=== PATIENT | female | born 1980 | race Caucasian/White ===

== ENCOUNTER 2016-11-22 11:30 | Emergency (ER) | payer OTHER ==
[~2016-11-22 11:30] MED LIST: METFORMIN HCL500 MG PO; PERCOCET1 TA1 PO; PRENATA1 PO; STOOL SOFTENER240 MG; TYLENOL325 MG PO
--- NOTE | 2016-11-22 12:26 | ED CLINICAL REPORT ---
Clinical Report - Physicians/Mid Levels [facility] [address] [place] [address] 11/22/2016 11:30 Patient: AKLPESH BLANC Time Seen: 11:51. Arrived- By private vehicle. Historian- patient. HISTORY OF PRESENT ILLNESS Chief Complaint: DENTAL PAIN. This started several days ago; The patient had a L lower molar extracted several days ago. The extraction site is quite painful. and is still present. It was abrupt in onset. Pain described as moderate. No sore throat, mouth sores or swollen jaw or face. She has had jaw pain. Similar symptoms previously: None. Recent medical care: The patient was seen recently by a health care provider. ( Dental extraction . This is POD2). REVIEW OF SYSTEMS No fever, cough, difficulty breathing or chest pain. PAST HISTORY PROBLEMS: Otitis Externa. Dental Caries. Dental Pain. ADDITIONAL SURGERIES: . ADDITIONAL NOTES The nursing notes have been reviewed. PHYSICAL EXAM Vital Signs: 11/22/2016 12:25 BP: 149/80. HR: 98. RR: 16. O2 saturation: 98%. Temp: 98.6 F. Pain level now: 6/10. 11/22/2016 11:37 BP: 157/78. HR: 92. RR: 18. O2 saturation: 98%. Temp: 98.9 F. Pain level now: 7/10. Appearance: Alert. No acute distress. ENT: No pharyngeal erythema, peritonsillar mass, muffled or hoarse voice or dental decay. The mucous membranes are not dry. (L lower molar extraction site appears to be healing well.). Neck: Normal inspection. Trachea midline. PROGRESS AND PROCEDURES PROCEDURES (An eugenol impregnated sponge was placed in the extraction socket.). Course of Care: Ms Blanc declined the offered dental block. Disposition: Discharged. Condition: stable. CLINICAL IMPRESSION Dental pain (SECONDARY TO DRY SOCKET). INSTRUCTIONS (I AM HAPPY TO GIVE A DENTAL BLOCK IF DESIRED YOU NEED TO SEE THE DENTIST I PUT A EUENOL SOAKED DRESSING IN THE DRY SOCKET). Prescription Medications: Amoxicillin 500 mg capsules: take 1 orally every 8 hours for 7 days. No refills. Ibuprofen 800 mg tablets: take 1 tablet orally every 8 hours as needed for pain. Dispense thirty (30). No refills. Follow-up: Follow up with a dentist Thursday. Call for the next available appointment. Understanding of the discharge instructions verbalized by patient. (Electronically signed by Cachorro Ceja MD 11/24/2016 12:47)
--- NOTE | 2016-11-22 12:26 | ED NURSING NOTES ---
Clinical Report - Nurses [facility] [address] [place] [address] 11/22/2016 11:30 Patient: KALPESH BLANC TRIAGE Triage time 11:35 Nov 22 2016. Acuity: LEVEL 3. Chief Complaint: LEFT LOWER TOOTHACHE and JAW PAIN. Alert. --11:47 Johnny Hdez R.N. 11:37 11/22/16. BP: 157/78. HR: 92. RR: 18. O2 saturation: 98% on room air. Temp: 98.9 F (oral). Pain level now: 03/30. Additional comments: LL jaw dental pain. --11:47 Johnny Hdez R.N. SEPSIS SCREEN: Sepsis Screen. Negative (no infection suspected/documented). TONYA COMA SCORE: [place] Coma Scale: 15- eyes open spontaneously (4); best verbal response- oriented x 4 (5); best motor response- obeys commands (6). --11:47 Johnny Hdez R.N. Weight: 120.2 kg stated. Height/Length: 68 inches Per Patient. BMI: 40.3. --11:43 Johnny Hdez R.N. Medications Seasonal Allergy Rx (?). --11:42 Johnny Hdez R.N. Ibuprofen Oral. --11:42 Johnny Hdez R.N. Allergies Codeine. Definite Moderate(nausea) --11:42 Johnny Hdez R.N. History Arrived by private vehicle. Historian: patient. Primary physician ([facility]). ( (L) Lower Jaw dental pain. Pt states that she had a tooth extracted on 11/17/16 and the pain has worsened since.). Onset. (about 2 days ago). She has had a toothache. 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 PAST MEDICAL HX: Strep throat. Dental caries. Immunizations: up-to-date. Denies current : Tubal Ligation. SOCIAL HX: Heavy tobacco smoker (cigarette)- less than 1 pack per day. No alcohol use or drug use. No infectious disease exposure. ABUSE ASSESSMENT: No report of abuse. FALL RISK ASSESSMENT: Fall risk assessment completed. No fall risk identified. NUTRITIONAL RISK ASSESSMENT: The nutritional risk assessment revealed no deficiencies. FUNCTIONAL ASSESSMENT: Functional assessment: no impairments noted. LEARNING NEEDS ASSESSMENT: The learning needs assessment revealed no barriers. SKIN INTEGRITY ASSESSMENT: Skin integrity risk assessment completed. No skin integrity risk identified. --11:47 Johnny Hdez R.N. PROBLEMS: Otitis Externa. Dental Caries. Dental Pain. Subchorionic Hemorrhage. Vaginitis. . Threatened . --11:43 Johnny Hdez R.N. ADDITIONAL SURGERIES: . --11:43 Johnny Hdez R.N. Interventions ID and allergy band on patient. To treatment room. --11:47 Johnny Hdez R.N. PHYSICAL ASSESSMENT Ambulatory to room. GENERAL / NEURO / PSYCH: Alert. Oriented X 4. Appears in pain. HEENT: Pharynx within normal limits. Voice within normal limits. Dental tenderness. Mucous membranes are pink. RESPIRATORY: Respirations not labored. CVS: Capillary refill less than 2 seconds. SKIN: Skin is warm and dry. Normal skin turgor. --11:48 Johnny Hdez R.N. NURSING PROGRESS NOTES Reassurance given. Patient identifiers checked. Call light placed in reach. Side rails up x 1. Bed placed in lowest position. Brakes of bed on. Patient ready for evaluation- chart flagged and ED physician notified. --11:48 Johnny Hdez R.N. 12:10. ( Dental dressing with Euenol placed by Dr. Ceja). --12:53 Johnny Hdez R.N. DISPOSITION / DISCHARGE 12:25 11/22/16. BP: 149/80. HR: 98 (regular and normal rate). RR: 16. O2 saturation: 98% on room air. Temp: 98.6 F (oral). Pain level now: 02/28. --12:47 Johnny Hdez R.N. Departure time: 1230. --12:48 Johnny Hdez R.N. 12:30. Condition at departure: improved. No learning barriers present. Discharge instructions provided and reviewed with the patient. Reviewed medication(s) (prescripon given to pt). Reviewed referrals. Patient verbalized understanding. Written instructions provided in [place]. The patient was discharged by the physician. She was discharged home and unaccompanied at time of discharge. She left the Emergency Department ambulatory and via private vehicle. Patient driving. --12:49 Johnny Hdez R.N. Locked/Released at 11/22/2016 13:19 by Johnny Hdez R.N.
--- NOTE | 2016-11-22 12:26 | ED CLINICAL REPORT ---
Clinical Report - Physicians/Mid Levels [facility] [address] [place] [address] 11/22/2016 11:30 Patient: KALPESH BLANC Time Seen: 11:51. Arrived- By private vehicle. Historian- patient. HISTORY OF PRESENT ILLNESS Chief Complaint: DENTAL PAIN. This started several days ago; The patient had a L lower molar extracted several days ago. The extraction site is quite painful. and is still present. It was abrupt in onset. Pain described as moderate. No sore throat, mouth sores or swollen jaw or face. She has had jaw pain. Similar symptoms previously: None. Recent medical care: The patient was seen recently by a health care provider. ( Dental extraction . This is POD2). REVIEW OF SYSTEMS No fever, cough, difficulty breathing or chest pain. PAST HISTORY PROBLEMS: Otitis Externa. Dental Caries. Dental Pain. ADDITIONAL SURGERIES: . ADDITIONAL NOTES The nursing notes have been reviewed. PHYSICAL EXAM Vital Signs: 11/22/2016 12:25 BP: 149/80. HR: 98. RR: 16. O2 saturation: 98%. Temp: 98.6 F. Pain level now: 6/10. 11/22/2016 11:37 BP: 157/78. HR: 92. RR: 18. O2 saturation: 98%. Temp: 98.9 F. Pain level now: 7/10. Appearance: Alert. No acute distress. ENT: No pharyngeal erythema, peritonsillar mass, muffled or hoarse voice or dental decay. The mucous membranes are not dry. (L lower molar extraction site appears to be healing well.). Neck: Normal inspection. Trachea midline. PROGRESS AND PROCEDURES PROCEDURES (An eugenol impregnated sponge was placed in the extraction socket.). Course of Care: Ms Blanc declined the offered dental block. Disposition: Discharged. Condition: stable. CLINICAL IMPRESSION Dental pain (SECONDARY TO DRY SOCKET). INSTRUCTIONS (I AM HAPPY TO GIVE A DENTAL BLOCK IF DESIRED YOU NEED TO SEE THE DENTIST I PUT A EUENOL SOAKED DRESSING IN THE DRY SOCKET). Prescription Medications: Amoxicillin 500 mg capsules: take 1 orally every 8 hours for 7 days. No refills. Ibuprofen 800 mg tablets: take 1 tablet orally every 8 hours as needed for pain. Dispense thirty (30). No refills. Follow-up: Follow up with a dentist Thursday. Call for the next available appointment. Understanding of the discharge instructions verbalized by patient. (Electronically signed by Cachorro Ceja MD 11/24/2016 12:47)
--- NOTE | 2016-11-22 12:26 | ED NURSING NOTES ---
Clinical Report - Nurses [facility] [address] [place] [address] 11/22/2016 11:30 Patient: KALPESH BLANC TRIAGE Triage time 11:35 Nov 22 2016. Acuity: LEVEL 3. Chief Complaint: LEFT LOWER TOOTHACHE and JAW PAIN. Alert. --11:47 Johnny Hdez R.N. 11:37 11/22/16. BP: 157/78. HR: 92. RR: 18. O2 saturation: 98% on room air. Temp: 98.9 F (oral). Pain level now: 03/30. Additional comments: LL jaw dental pain. --11:47 Johnny Hdez R.N. SEPSIS SCREEN: Sepsis Screen. Negative (no infection suspected/documented). TONYA COMA SCORE: [place] Coma Scale: 15- eyes open spontaneously (4); best verbal response- oriented x 4 (5); best motor response- obeys commands (6). --11:47 Johnny Hdez R.N. Weight: 120.2 kg stated. Height/Length: 68 inches Per Patient. BMI: 40.3. --11:43 Johnny Hdez R.N. Medications Seasonal Allergy Rx (?). --11:42 Johnny Hdez R.N. Ibuprofen Oral. --11:42 Johnny Hdez R.N. Allergies Codeine. Definite Moderate(nausea) --11:42 Johnny Hdez R.N. History Arrived by private vehicle. Historian: patient. Primary physician ([facility]). ( (L) Lower Jaw dental pain. Pt states that she had a tooth extracted on 11/17/16 and the pain has worsened since.). Onset. (about 2 days ago). She has had a toothache. 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 PAST MEDICAL HX: Strep throat. Dental caries. Immunizations: up-to-date. Denies current : Tubal Ligation. SOCIAL HX: Heavy tobacco smoker (cigarette)- less than 1 pack per day. No alcohol use or drug use. No infectious disease exposure. ABUSE ASSESSMENT: No report of abuse. FALL RISK ASSESSMENT: Fall risk assessment completed. No fall risk identified. NUTRITIONAL RISK ASSESSMENT: The nutritional risk assessment revealed no deficiencies. FUNCTIONAL ASSESSMENT: Functional assessment: no impairments noted. LEARNING NEEDS ASSESSMENT: The learning needs assessment revealed no barriers. SKIN INTEGRITY ASSESSMENT: Skin integrity risk assessment completed. No skin integrity risk identified. --11:47 Johnny Hdez R.N. PROBLEMS: Otitis Externa. Dental Caries. Dental Pain. Subchorionic Hemorrhage. Vaginitis. . Threatened . --11:43 Johnny Hdez R.N. ADDITIONAL SURGERIES: . --11:43 Johnny Hdez R.N. Interventions ID and allergy band on patient. To treatment room. --11:47 Johnny Hdez R.N. PHYSICAL ASSESSMENT Ambulatory to room. GENERAL / NEURO / PSYCH: Alert. Oriented X 4. Appears in pain. HEENT: Pharynx within normal limits. Voice within normal limits. Dental tenderness. Mucous membranes are pink. RESPIRATORY: Respirations not labored. CVS: Capillary refill less than 2 seconds. SKIN: Skin is warm and dry. Normal skin turgor. --11:48 Johnny Hdez R.N. NURSING PROGRESS NOTES Reassurance given. Patient identifiers checked. Call light placed in reach. Side rails up x 1. Bed placed in lowest position. Brakes of bed on. Patient ready for evaluation- chart flagged and ED physician notified. --11:48 Johnny Hdez R.N. 12:10. ( Dental dressing with Euenol placed by Dr. Ceja). --12:53 Johnny Hdez R.N. DISPOSITION / DISCHARGE 12:25 11/22/16. BP: 149/80. HR: 98 (regular and normal rate). RR: 16. O2 saturation: 98% on room air. Temp: 98.6 F (oral). Pain level now: 02/28. --12:47 Johnny Hdez R.N. Departure time: 1230. --12:48 Johnny Hdez R.N. 12:30. Condition at departure: improved. No learning barriers present. Discharge instructions provided and reviewed with the patient. Reviewed medication(s) (prescripon given to pt). Reviewed referrals. Patient verbalized understanding. Written instructions provided in [place]or[place]. The patient was discharged by the physician. She was discharged home and unaccompanied at time of discharge. She left the Emergency Department ambulatory and via private vehicle. Patient driving. --12:49 Johnny Hdez R.N. Locked/Released at 11/22/2016 13:19 by Johnny Hdez R.N.
--- NOTE | 2016-11-22 12:27 | ED ORDER SUMMARY ---
..... Patient: KALPESH BLANC OrderSheet [facility] VisitID: [id number] [address] [place] [address] 36y, F Registration Date/Time: 11/22/2016 ORDER SHEET Weight: 120.2 kg (stated) Allergies: Codeine GENERAL ORDERS: MEDICATION ORDERS: Ibuprofen PO 800 mg (NOW) (12:15 11/22/2016 Zeyad CHUNG) (Cancelled: Patient Left12:42 Katy Elizondo) IV FLUIDS: ORDER SHEET NOTES: [Electronically signed by Johnny Hdez R.N. (13:19 11/22/2016)] [Electronically signed by Cachorro Ceja MD (12:47 11/24/2016)] [Electronically locked/signed by Johnny Hdez R.N. (13:19 11/22/2016)]
--- NOTE | 2016-11-22 12:27 | ED ORDER SUMMARY ---
..... Patient: KALPESH BLANC OrderSheet [facility] VisitID: [id number] [address] [place] [address] 36y, F Registration Date/Time: 11/22/2016 ORDER SHEET Weight: 120.2 kg (stated) Allergies: Codeine GENERAL ORDERS: MEDICATION ORDERS: Ibuprofen PO 800 mg (NOW) (12:15 11/22/2016 Zeyad CHUNG) (Cancelled: Patient Left12:42 Katy Elizondo) IV FLUIDS: ORDER SHEET NOTES: [Electronically signed by Johnny Hdez R.N. (13:19 11/22/2016)] [Electronically signed by Cachorro Ceja MD (12:47 11/24/2016)] [Electronically locked/signed by Johnny Hdez R.N. (13:19 11/22/2016)]
--- NOTE | 2016-11-24 12:47 | ED DISCHARGE INSTRUCTIONS ---
Patient: KAPLESH BLANC General Instructions [facility] VisitID: [id number] [place] [address] 36y, F Registration Date/Time: 11/22/2016 Dental pain (SECONDARY TO DRY SOCKET). INSTRUCTIONS (I AM HAPPY TO GIVE A DENTAL BLOCK IF DESIRED YOU NEED TO SEE THE DENTIST I PUT A EUENOL SOAKED DRESSING IN THE DRY SOCKET). Prescription Medications: Amoxicillin 500 mg capsules: take 1 orally every 8 hours for 7 days. No refills. Ibuprofen 800 mg tablets: take 1 tablet orally every 8 hours as needed for pain. Dispense thirty (30). No refills. Follow-up: Follow up with a dentist Thursday. Call for the next available appointment. Understanding of the discharge instructions verbalized by patient. ADDITIONAL INFORMATION Amoxicillin Trihydrate Oral tablet What is this medicine? AMOXICILLIN (a mox i KASSANDRA in) is a penicillin antibiotic. It is used to treat certain kinds of bacterial infections. It will not work for colds, flu, or other viral infections. How should I use this medicine? Take this medicine by mouth with a glass of water. Follow the directions on your prescription label. You may take this medicine with food or on an empty stomach. Take your medicine at regular intervals. Do not take your medicine more often than directed. Take all of your medicine as directed even if you think your are better. Do not skip doses or stop your medicine early. Talk to your rn ante partum regarding the use of this medicine in children. While this drug may be prescribed for selected conditions, precautions do apply. What side effects may I notice from receiving this medicine? Side effects that you should report to your doctor or health day care assistant as soon as possible: allergic reactions like skin rash, itching or hives, swelling of the face, lips, or tongue breathing problems dark urine redness, blistering, peeling or loosening of the skin, including inside the mouth seizures severe or watery diarrhea trouble passing urine or change in the amount of urine unusual bleeding or bruising unusually weak or tired yellowing of the eyes or skin Side effects that usually do not require medical attention (report to your doctor or health day care assistant if they continue or are bothersome): dizziness headache stomach upset trouble sleeping What may interact with this medicine? amiloride control pills chloramphenicol macrolides probenecid sulfonamides tetracyclines What if I miss a dose? If you miss a dose, take it as soon as you can. If it is almost time for your next dose, take only that dose. Do not take double or extra doses. Where should I keep my medicine? Keep out of the reach of children. Store between 68 and 77 degrees F (20 and 25 degrees C). Keep bottle closed tightly. Throw away any unused medicine after the expiration date. What should I tell my health care provider before I take this medicine? They need to know if you have any of these conditions: asthma kidney disease an unusual or allergic reaction to amoxicillin, other penicillins, cephalosporin antibiotics, other medicines, foods, dyes, or preservatives or trying to get breast-feeding What should I watch for while using this medicine? Tell your doctor or health day care assistant if your symptoms do not improve in 2 or 3 days. Take all of the doses of your medicine as directed. Do not skip doses or stop your medicine early. If you are diabetic, you may get a false positive result for sugar in your urine with certain brands of urine tests. Check with your doctor. Do not treat diarrhea with [id number] products. Contact your doctor if you have diarrhea that lasts more than 2 days or if the diarrhea is severe and watery. You have been given the following additional information: Amoxicillin Trihydrate Oral tablet (Electronically signed by Cachorro Ceja MD 11/24/2016 12:47)
--- NOTE | 2016-11-24 12:47 | ED DISCHARGE INSTRUCTIONS ---
Patient: KALPESH BLANC General Instructions [facility] VisitID: [id number] [place] [address] 36y, F Registration Date/Time: 11/22/2016 Dental pain (SECONDARY TO DRY SOCKET). INSTRUCTIONS (I AM HAPPY TO GIVE A DENTAL BLOCK IF DESIRED YOU NEED TO SEE THE DENTIST I PUT A EUENOL SOAKED DRESSING IN THE DRY SOCKET). Prescription Medications: Amoxicillin 500 mg capsules: take 1 orally every 8 hours for 7 days. No refills. Ibuprofen 800 mg tablets: take 1 tablet orally every 8 hours as needed for pain. Dispense thirty (30). No refills. Follow-up: Follow up with a dentist Thursday. Call for the next available appointment. Understanding of the discharge instructions verbalized by patient. ADDITIONAL INFORMATION Amoxicillin Trihydrate Oral tablet What is this medicine? AMOXICILLIN (a mox i KASSANDRA in) is a penicillin antibiotic. It is used to treat certain kinds of bacterial infections. It will not work for colds, flu, or other viral infections. How should I use this medicine? Take this medicine by mouth with a glass of water. Follow the directions on your prescription label. You may take this medicine with food or on an empty stomach. Take your medicine at regular intervals. Do not take your medicine more often than directed. Take all of your medicine as directed even if you think your are better. Do not skip doses or stop your medicine early. Talk to your lock operator regarding the use of this medicine in children. While this drug may be prescribed for selected conditions, precautions do apply. What side effects may I notice from receiving this medicine? Side effects that you should report to your doctor or health care asst as soon as possible: allergic reactions like skin rash, itching or hives, swelling of the face, lips, or tongue breathing problems dark urine redness, blistering, peeling or loosening of the skin, including inside the mouth seizures severe or watery diarrhea trouble passing urine or change in the amount of urine unusual bleeding or bruising unusually weak or tired yellowing of the eyes or skin Side effects that usually do not require medical attention (report to your doctor or health care asst if they continue or are bothersome): dizziness headache stomach upset trouble sleeping What may interact with this medicine? amiloride control pills chloramphenicol macrolides probenecid sulfonamides tetracyclines What if I miss a dose? If you miss a dose, take it as soon as you can. If it is almost time for your next dose, take only that dose. Do not take double or extra doses. Where should I keep my medicine? Keep out of the reach of children. Store between 68 and 77 degrees F (20 and 25 degrees C). Keep bottle closed tightly. Throw away any unused medicine after the expiration date. What should I tell my health care provider before I take this medicine? They need to know if you have any of these conditions: asthma kidney disease an unusual or allergic reaction to amoxicillin, other penicillins, cephalosporin antibiotics, other medicines, foods, dyes, or preservatives or trying to get breast-feeding What should I watch for while using this medicine? Tell your doctor or health care asst if your symptoms do not improve in 2 or 3 days. Take all of the doses of your medicine as directed. Do not skip doses or stop your medicine early. If you are diabetic, you may get a false positive result for sugar in your urine with certain brands of urine tests. Check with your doctor. Do not treat diarrhea with [id number] products. Contact your doctor if you have diarrhea that lasts more than 2 days or if the diarrhea is severe and watery. You have been given the following additional information: Amoxicillin Trihydrate Oral tablet (Electronically signed by Cachorro Ceja MD 11/24/2016 12:47)
--- NOTE | 2016-11-24 12:47 | ED MAR SUMMARY ---
..... Medication Administration Record [facility] [address] [place] [id number] Patient: KALPESH BLANC Visit ID: [id number] 36y, F Weight: 120.2 kg Height/Length: 68 in BMI: 40.3 ALLERGIES: Codeine
--- NOTE | 2016-11-24 12:47 | ED MAR SUMMARY ---
..... Medication Administration Record [facility] [address] [place], [place] [id number] Patient: KALPESH BLANC Visit ID: [id number] 36y, F Weight: 120.2 kg Height/Length: 68 in BMI: 40.3 ALLERGIES: Codeine
--- NOTE | 2016-11-24 12:47 | ED MED RECONCILIATION SUMMARY ---
Patient: KALPESH BLANC Medication Reconciliation Report [facility] VisitID: [id number] [address] [place] [address] 36y, F Registration Date/Time: 11/22/2016 Weight: 120.2 kg Height/Length: 68 in. BMI: 40.3 ALLERGIES: Codeine The patient's Home Medications are listed below: THE FOLLOWING MEDICATIONS NEED TO BE RECONCILED: Ibuprofen Oral Seasonal Allergy Rx (?) The source(s) of the original Home Medication information: Not obtained. The following Medications were given to the patient in the Emergency Department: None. The following Medications were prescribed to the patient: Amoxicillin 500 mg capsules: take 1 orally every 8 hours for 7 days. No refills. -- Cachorro Ceja MD Ibuprofen 800 mg tablets: take 1 tablet orally every 8 hours as needed for pain. Dispense thirty (30). No refills. -- Cachorro Ceja MD
--- NOTE | 2016-11-24 12:47 | ED MED RECONCILIATION SUMMARY ---
Patient: KALPESH BLANC Medication Reconciliation Report [facility] VisitID: [id number] [address] [place] [address] 36y, F Registration Date/Time: 11/22/2016 Weight: 120.2 kg Height/Length: 68 in. BMI: 40.3 ALLERGIES: Codeine The patient's Home Medications are listed below: THE FOLLOWING MEDICATIONS NEED TO BE RECONCILED: Ibuprofen Oral Seasonal Allergy Rx (?) The source(s) of the original Home Medication information: Not obtained. The following Medications were given to the patient in the Emergency Department: None. The following Medications were prescribed to the patient: Amoxicillin 500 mg capsules: take 1 orally every 8 hours for 7 days. No refills. -- Cachorro Ceja MD Ibuprofen 800 mg tablets: take 1 tablet orally every 8 hours as needed for pain. Dispense thirty (30). No refills. -- Cachorro Ceja MD
== END 2016-11-22 12:30 | disposition home or self-care (01) ==
LOC: ED SRH 11:30
DX: M27.3 Alveolitis of jaws (principal); K08.89 Other specified disorders of teeth and supporting structures